=== PATIENT | female | born 2000 | race African-American/Black ===

== ENCOUNTER 2018-10-29 08:39 | Outpatient (CLI) | payer OTHER ==
--- NOTE | 2018-10-29 09:34 | ULT ---
FUS OB Complete STANDARD History: [Anatomy, size/dates] Comparison: None. Findings: Real-time grayscale, color, and spectral analysis of the gravid uterus was performed transa bdominal approach. Normal single viable intrauterine with average ultrasound age 22 week 3 day with estimated date of delivery March 01, 2019. Estimated weight is 1 lb. 3 oz., 78th percentile Heart rate documented at 146 bpm. The placenta is anterior and the presentation is breech. Normal amniotic fluid. No placenta previa. The three-vessel cord overlies the internal os. Anatomy: Head, cerebellum, cisterna magna, lateral ventricles, four-chamber heart, stomach, kidneys, cord insertion, bladder, spine, lips/nose, upper extremities, lower extremities, three-vessel cord we re all visualized and appear normal. Biometry: Biparietal diameter: 5.17 cm, 21 week 5 day Head circumference: 19.8 cm 22 weeks 0 day Abdominal circumference: 18.83 cm 23 week 5 day Femur length: 3.71 cm 21 weeks 6 day Impression: Single viable intrauterine with average ultrasound age 22 weeks 3 days with est imated date of delivery March 01, 2019. The three-vessel cord does overlie the internal os.
== END 2018-10-29 08:40 | disposition home or self-care (01) ==
LOC: BICULT 08:39
PROVIDERS: ATTEND Family Medicine
DX: Z34.02 Encounter for supervision of normal first pregnancy, second trimester (principal); Z3A.22 22 weeks gestation of pregnancy
CPT/HCPCS: 76805

== ENCOUNTER 2018-12-30 00:19 | Observation (INO) | payer OTHER ==
[2018-12-30 00:46] VITALS: BMI 38.4
[2018-12-30] MEDS ORDERED: Ondansetron PF 4 MG/2 ML Vial IVP PRN (02:39)
[2018-12-30] MEDS ORDERED: Promethazine HCl 25 MG/ML VIAL IM PRN (02:39)
[2018-12-30] MEDS ORDERED: Acetaminophen 500 MG TAB PO PRN (02:39)
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
--- NOTE | 2018-12-31 16:05 | DIS ---
DATE OF ADMISSION: 12/30/2018 DATE OF DISCHARGE: 12/30/2018 ADMITTING DIAGNOSES: 1. Intrauterine at 30 weeks. 2. Status post fall. DISCHARGE DIAGNOSES: 1. Intrauterine at 30 weeks. 2. Status post fall. PROCEDURE: None. HOSPITAL COURSE: The patient is a 18-year-old female, who fell on her belly last night around 11 o'clock and presented to Labor and Delivery for evaluation. The patient has been monitored for the last 5 hours without any evidence of contractions, vaginal bleeding, and category one tracing. This morning, on re-evaluation of the patient, the patient has no complaints. PHYSICAL EXAMINATION: VITAL SIGNS: Blood pressure 113/60, heart rate of 79, respiratory rate of 16, and temperature 98.3. GENERAL: She appears to be in no acute distress. She is alert, oriented, cooperative, and pleasant to interact with. ABDOMEN: Soft. Review of the heart tracing shows tocometer without any contractions and heart tracing with a baseline in the 120s with moderate long-term variability, positive 15 x 15 accelerations, no decelerations. The patient is being discharged to home with instructions to follow up with her primary OB Dr. Waddell as scheduled on Monday. Job ID: [id number]
== END 2018-12-30 07:57 | disposition home health service (06) ==
LOC: L&D/OP 00:19 → L&D 02:39
PROVIDERS: ADMIT Family Medicine; ATTEND Family Medicine
DX: Z04.3 Encounter for examination and observation following other accident (principal); Z3A.30 30 weeks gestation of pregnancy; W18.09XA Striking against other object with subsequent fall, initial encounter
CPT/HCPCS: 99285; G0378

== ENCOUNTER 2019-03-04 19:45 | Inpatient (IN) | payer OTHER ==
[~2019-03-04 19:45] MED LIST: Bupivacaine/Epinephrine 0.25% 30 ML VIAL ONE
[2019-03-04] MEDS ORDERED: Lidocaine 1% (PF) 30 ML VIAL SC PRN (21:37)
[2019-03-04] MEDS ORDERED: NS / Oxytocin 40 units/1000ml 1,000 ML IV PRN (21:37)
[2019-03-04] MEDS ORDERED: Promethazine HCl 25 MG/ML VIAL IM PRN (21:37)
[2019-03-04] MEDS ORDERED: Penicillin G Potassium 5 MILL.UNITS in Sodium Chloride 0.9% 100 ML IVPB SCH (21:37)
[2019-03-04] MEDS ORDERED: hydrALAZINE 20 MG/ML VIAL SLOW IVP PRN (21:37)
[2019-03-04] MEDS ORDERED: Misoprostol 200 MCG TAB PR PRN (21:37)
[2019-03-04] MEDS ORDERED: Diphenoxylate HCl/Atropine Tablet PO PRN (21:37)
[2019-03-04] MEDS ORDERED: HYDROcodone/Acetaminophen 5/325 mg Tablet PO PRN (21:37)
[2019-03-04] MEDS ORDERED: Penicillin G 2.5 MILL.units 2.5 MILL.UNITS in Premix Bag 1 BAG IVPB SCH (21:37)
[2019-03-04] MEDS ORDERED: Carboprost 250 MCG/ML AMP IM PRN (21:37)
[2019-03-04] MEDS ORDERED: NS w/ Oxytocin 10 units 500 ML IV SCH (21:37)
[2019-03-04] MEDS ORDERED: Ibuprofen 800 MG TAB PO PRN (21:37)
[2019-03-04] MEDS ORDERED: Methylergonovine 0.2 MG/ML VIAL IM PRN (21:37)
[2019-03-04] MEDS: Lactated Ringer's 1,000 ML IV SCH (22:15)
[2019-03-04 22:31] VITALS: BMI 41.3
[2019-03-04 22:50] LABS: Mean Corpuscular HGB CONC 33.7 g/dL (32.0-36.0); Mean Corpuscular Hemoglobin 28.3 pg (27.0-31.0); Mean Corpuscular Volume 84.1 fL (78.0-98.0); Mean Platelet Volume 9.9 fL (7.4-10.4); Platelet Count 169 thou/uL (130-400); Red Blood Cell (RBC) Count 4.93 mill/uL (4.20-5.40); White Blood Cell (WBC) Count 10.2 thou/uL (4.8-10.8)
[2019-03-04 23:28] LABS: HBSAg Index 0.34 S/CO (0-0.99); Hep B Surf Ag Non-Reactive S/CO (NonReactive); Syphilis Antibody Nonreactive (Nonreactive); Syphilis Antibody Index 0.05 S/CO (<1.00 Non-Reactive)
[2019-03-05] MEDS: Lactated Ringer's 1,000 ML IV SCH ×4 (04:54→21:05)
[2019-03-05] MEDS: Misoprostol 100 MCG TAB PO SCH ×3 (07:17→19:46)
[2019-03-05] MEDS: Butorphanol Tartrate 1 MG/ML VIAL SLOW IVP PRN ×2 (13:53→16:17)
[2019-03-05] MEDS ORDERED: Fentanyl 4 mcg/Bup 0.1% Cadd 100 ML ONE ×2 (17:24→17:34)
[2019-03-05] MEDS: Ondansetron PF 4 MG/2 ML Vial IVP PRN (18:33)
[2019-03-05] MEDS: NS w/ Oxytocin 10 units 500 ML IV SCH (19:47)
[2019-03-06] MEDS: Ondansetron PF 4 MG/2 ML Vial IVP PRN ×2 (00:28→09:08)
[2019-03-06] MEDS ORDERED: Fentanyl 4 mcg/Bup 0.1% Cadd 100 ML ONE ×2 (00:34→06:25)
[2019-03-06] MEDS ORDERED: Azithromycin 500 MG VIAL ONE (07:36)
[2019-03-06] MEDS ORDERED: CEFAZOLIN 2 GM in Premix Bag 1 BAG IVPB SCH ×2 (07:45→08:00)
[2019-03-06] MEDS ORDERED: Bicitra 30 ML UDCUP PO SCH (07:45)
[2019-03-06] MEDS ORDERED: Gentamicin Sulfate 80 MG in Premix Bag 1 BAG IVPB SCH (07:45)
[2019-03-06] MEDS ORDERED: Bicitra 30 ML UDCUP ONE (07:47)
[2019-03-06] MEDS ORDERED: CEFAZOLIN 2 GM in Sodium Chloride 0.9% 100 ML IVPB SCH (08:00)
[2019-03-06] MEDS ORDERED: metroNIDAZOLE 500 MG in Premix Bag 1 BAG IVPB ONE (08:00)
[2019-03-06] MEDS ORDERED: Azithromycin 500 MG in Sodium Chloride 0.9% 250 ML 250 ML IVPB SCH (08:00)
[2019-03-06] MEDS ORDERED: Methylergonovine 0.2 MG/ML VIAL ONE (08:32)
[2019-03-06] MEDS ORDERED: Carboprost 250 MCG/ML AMP ONE ×2 (08:33→10:24)
[2019-03-06] MEDS: Lactated Ringer's 1,000 ML IV SCH ×2 (08:56→17:39)
[2019-03-06] MEDS ORDERED: Fentanyl 100 MCG/2 ML VIAL ONE ×2 (09:48→10:50)
[2019-03-06] MEDS ORDERED: Metoclopramide HCl 10 MG/2 ML VIAL ONE (09:49)
[2019-03-06] MEDS ORDERED: Ondansetron PF 4 MG/2 ML Vial ONE (09:49)
[2019-03-06] MEDS ORDERED: Lidocaine 2% 10 ML INJ ONE (09:49)
[2019-03-06] MEDS ORDERED: Oxytocin 10 UNITS/ML VIAL ONE (09:49)
[2019-03-06] MEDS ORDERED: Lidocaine 2% PF 5 ML VIAL ONE (10:00)
[2019-03-06] MEDS ORDERED: Ketorolac Tromethamine 30 MG/ML VIAL ONE ×2 (10:00→11:12)
[2019-03-06] MEDS ORDERED: Labetalol HCl 100 MG/20 ML VIAL ONE ×2 (10:00→11:06)
[2019-03-06] MEDS ORDERED: Succinylcholine Chloride 20 MG/ML 10 ml SYRINGE FS ONE (10:02)
[2019-03-06] MEDS ORDERED: PROPOFOL 20 ML ONE (10:02)
[2019-03-06] MEDS ORDERED: MORPHINE 5 MG/10 ML PF VIAL ONE ×2 (10:14→11:06)
[2019-03-06] MEDS ORDERED: Promethazine HCl 25 MG SUPP PR PRN (10:34)
[2019-03-06] MEDS ORDERED: Ondansetron PF 4 MG/2 ML Vial IVP PRN ×2 (10:34→14:40)
[2019-03-06] MEDS ORDERED: Naloxone HCl 0.4 mg/ml Vial IV PRN (10:34)
[2019-03-06] MEDS ORDERED: Ondansetron HCl/PF 4 MG/2 ML Vial IVP PRN (10:34)
[2019-03-06] MEDS ORDERED: HYDROmorphone 2 MG/ML VIAL SLOW IVP PRN (10:34)
[2019-03-06] MEDS ORDERED: diphenhydrAMINE 50 MG/ML VIAL IVP PRN (10:34)
[2019-03-06] MEDS ORDERED: Meperidine HCl/PF 25 MG/ML VIAL SLOW IVP PRN (10:34)
[2019-03-06] MEDS ORDERED: L&D-Morphine 4 MG/ML VIAL SLOW IVP PRN (10:34)
[2019-03-06] MEDS ORDERED: Promethazine HCl 25 MG/ML VIAL IM PRN ×2 (10:34→14:40)
[2019-03-06] MEDS ORDERED: Ketorolac Tromethamine 30 MG/ML VIAL IVP PRN (10:34)
[2019-03-06] MEDS ORDERED: Naloxone HCl 0.4 mg/ml Vial IVP PRN ×2 (10:34)
[2019-03-06] MEDS ORDERED: Communication Order-Pharmacy FS PRN (10:45)
[2019-03-06] MEDS ORDERED: Meperidine HCl/PF 25 MG/ML VIAL ONE (12:00)
[2019-03-06] MEDS ORDERED: diphenhydrAMINE 25 MG CAP PO PRN (14:40)
[2019-03-06] MEDS ORDERED: NS / Oxytocin 40 units/1000ml 1,000 ML IV SCH (14:40)
[2019-03-06] MEDS ORDERED: HYDROcodone/Acetaminophen 5/325 mg Tablet PO PRN (14:40)
[2019-03-06] MEDS ORDERED: Simethicone Chewable 80 MG TAB PO PRN (14:40)
[2019-03-06] MEDS ORDERED: hydrALAZINE 20 MG/ML VIAL SLOW IVP PRN (14:40)
[2019-03-06] MEDS ORDERED: Bisacodyl 10 MG SUPP PR PRN (14:40)
[2019-03-06] MEDS ORDERED: Meperidine HCl/PF 25 MG/ML VIAL IM PRN (14:40)
[2019-03-06] MEDS ORDERED: Lanolin Ointment 7 GM TUBE TOP PRN (14:40)
--- NOTE | 2019-03-06 15:19 | OP ---
DATE OF PROCEDURE: 03/06/2019 PREOPERATIVE DIAGNOSES: 1. A 40-week . 2. Failure to descend. 3. Intrapartum fever, suspected chorioamnionitis. POSTOPERATIVE DIAGNOSES: 1. A 40-week . 2. Failure to descend. 3. Intrapartum fever, suspected chorioamnionitis. 4. Persistant OP presentation PROCEDURE PERFORMED: Primary low cervical transverse . SURGEON: Be Waddell MD HARDWARE ASSEMBLER: Frank Corado MD INTRAOPERATIVE CONSULTATION: Dr. Wing. DESCRIPTION OF PROCEDURE: After informed consent was obtained from the patient , and after her epidural was bolused, the patient was taken to the operating room, where she was prepped and draped in the usual sterile fashion. A Pfannenstiel incision was created with a #10 scalpel blade and carried down to the fascia. The fascia was nicked in the midline. The fascial incision was extended transversely with Diallo scissors. The superior fascial segments were grasped with Yousuf and elevated and the underlying rectus muscles were dissected free, first bluntly and then sharply with Diallo scissors. This was repeated with inferior fascial segment. The rectus muscles were divided in the midline with blunt digital dissection. An Pietro O retractor was placed. The uterus was entered in a low-transverse fashion with a clean #10 scalpel blade. The vertex was deeply impacted into the vagina, but was able to be delivered onto the abdomen. The remainder of the infant delivered uneventfully and atraumatically. The placenta was manually extracted. The uterus was exteriorized and freed of clots and debris. The uterus was noted to be somewhat atonic and Methergine x1 and Hemabate x1 were given along with Pitocin infusion, which resolved the uterine atony. The uterus was repaired with a running locking suture of 0 Vicryl in a single full-thickness layer, followed by series of interrupted [id number] sutures along the incision along the hysterotomy for hemostasis. Examination of the uterus and fallopian tubes revealed a tear in the broad ligament and ovarian ligament. The edges were oozing slightly, especially posteriorly. It was at this point that, Dr. Wing was consulted intraoperatively for assistance. After examining the edges and the more inferior part of the broad ligament, thoroughly we decided to place Teodora along the posterior and anterior aspects of the tear in the right broad and ovarian ligaments and after prolonged period of observation, hemostasis was observed. The uterus was then returned to the abdomen. The hysterotomy was examined and required two more interrupted [id number] sutures along the hysterotomy for hemostasis. The left corner was hemostatic. The right corner and broad ligaments were also hemostatic upon inspection. The peritoneum was then repaired with a running suture of 3-0 Vicryl. Fascia was repaired with a running suture of 0 PDS. Three interrupted sutures of 3-0 Vicryl were placed in the subdermal layer to approximate the skin, which was closed with skin crescencio. Sponge and instrument counts were correct x4. She tolerated the procedure well and suffered no acute complications. She was taken Recovery in stable condition and infant to the nursery in stable condition. FINDINGS: Viable female infant, Apgars 8 and 9 at 1 and 5 minutes respectively. SPECIMENS: 1. Placenta to pathology. 2. Cord ABG. COMPLICATIONS: Broad ligament tear. Job ID: [id number] MTDD
[2019-03-06] MEDS ORDERED: Adacel (T-DAP) 0.5 ML SYRINGE IM ONE (16:00)
[2019-03-06] MEDS: CEFAZOLIN 2 GM, IV Admixture Fee-Chemo 1 UNITS in Sodium Chloride 0.9% 100 ML IVPB SCH (17:38)
--- NOTE | 2019-03-06 18:41 | CON ---
DATE OF CONSULTATION: 03/06/2019 I was called to the operating room for a consultation by Dr. Waddell for intraoperative bleeding. The patient was taken to the operating room for low-transverse due to arrest of descent after pushing. Upon delivery, there was an extension through the right broad ligament. This was closed by Dr. Waddell prior to my arrival with only a large area of oozing remaining. There appeared to be no acute bleeding, but due to the continued oozing, Teodora was recommended to be placed over the bed on the posterior side of the uterus and broad ligament. Good hemostasis was noted at that time and the remainder of the operation was performed by Dr. Waddell. Job ID: [id number] MTDD
[2019-03-06] MEDS: Ferrous Sulfate 325 MG TAB PO SCH (20:00)
[2019-03-06] MEDS: Docusate Calcium (SURFAK) 240 MG CAP PO SCH (20:00)
[2019-03-06] MEDS: metroNIDAZOLE 500 MG in Premix Bag 1 BAG IVPB SCH (20:11)
[2019-03-06] MEDS: HYDROcodone/Acetaminophen 5/325 mg Tablet PO PRN (23:36)
[2019-03-07] MEDS: CEFAZOLIN 2 GM, IV Admixture Fee-Chemo 1 UNITS in Sodium Chloride 0.9% 100 ML IVPB SCH ×3 (01:56→17:45)
[2019-03-07] MEDS: metroNIDAZOLE 500 MG in Premix Bag 1 BAG IVPB SCH ×3 (04:03→20:11)
[2019-03-07 04:30] LABS: Hemoglobin 10.8 g/dL (12.0-16.0); Mean Corpuscular HGB CONC 33.5 g/dL (32.0-36.0); Mean Corpuscular Volume 86.5 fL (78.0-98.0); Mean Platelet Volume 9.2 fL (7.4-10.4); Platelet Count 127 thou/uL (130-400); Red Blood Cell (RBC) Count 3.74 mill/uL (4.20-5.40); White Blood Cell (WBC) Count 12.9 thou/uL (4.8-10.8)
[2019-03-07] MEDS: Ibuprofen 800 MG TAB PO SCH ×4 (06:21→22:14)
[2019-03-07] MEDS ORDERED: Sodium Chloride 0.9% 10 ML ONE ×3 (07:44→20:24)
[2019-03-07] MEDS: Prenatal Vitamin 1 TAB PO SCH (09:14)
[2019-03-07] MEDS: Ferrous Sulfate 325 MG TAB PO SCH ×2 (09:15→21:59)
[2019-03-07] MEDS: Docusate Calcium (SURFAK) 240 MG CAP PO SCH ×2 (09:15→21:56)
[2019-03-07] MEDS: Lactated Ringer's 1,000 ML IV SCH (09:17)
[2019-03-08] MEDS: HYDROcodone/Acetaminophen 5/325 mg Tablet PO PRN (00:32)
[2019-03-08] MEDS: CEFAZOLIN 2 GM, IV Admixture Fee-Chemo 1 UNITS in Sodium Chloride 0.9% 100 ML IVPB SCH ×3 (02:24→17:37)
[2019-03-08] MEDS: metroNIDAZOLE 500 MG in Premix Bag 1 BAG IVPB SCH ×3 (04:04→19:47)
[2019-03-08] MEDS: Ibuprofen 800 MG TAB PO SCH ×3 (05:58→21:13)
[2019-03-08] MEDS: Prenatal Vitamin 1 TAB PO SCH (09:26)
[2019-03-08] MEDS: Docusate Calcium (SURFAK) 240 MG CAP PO SCH ×2 (09:26→21:13)
[2019-03-08] MEDS: Ferrous Sulfate 325 MG TAB PO SCH ×2 (09:27→21:14)
[2019-03-08] MEDS ORDERED: Amlodipine 5 MG TAB ONE (10:28)
[2019-03-08] MEDS ORDERED: Sodium Chloride 0.9% 10 ML ONE ×2 (10:29→19:30)
[2019-03-08 19:08] LABS: Bacteria/HPF 2+ HPF (None Seen); Bilirubin Negative (Negative); Blood, Urine 3+ (Negative); Clarity Turbid (Clear); Glucose, Urine (Dipstick) Normal (Negative); Leukocyte 250 Leu/uL (Negative); Nitrite Negative (Negative); Protein, Urine (Dipstick) 50 mg/dL (Neg-Trace); RBC/HPF Greater than 50 HPF (0-3); Urobilinogen 6 mg/dL (Less than 2); WBC/HPF Greater than 50 HPF (0-3)
[2019-03-08 19:09] LABS: Urine Culture Reflex No No
[2019-03-08] MEDS: NS w/ Oxytocin 10 units 500 ML IV SCH (19:22)
[2019-03-09] MEDS: CEFAZOLIN 2 GM, IV Admixture Fee-Chemo 1 UNITS in Sodium Chloride 0.9% 100 ML IVPB SCH ×2 (02:27→10:42)
[2019-03-09] MEDS: metroNIDAZOLE 500 MG in Premix Bag 1 BAG IVPB SCH ×2 (03:46→11:30)
[2019-03-09] MEDS: Ibuprofen 800 MG TAB PO SCH ×2 (05:55→14:54)
[2019-03-09] MEDS: Ferrous Sulfate 325 MG TAB PO SCH (09:25)
[2019-03-09] MEDS: Docusate Calcium (SURFAK) 240 MG CAP PO SCH (09:26)
[2019-03-09] MEDS: Prenatal Vitamin 1 TAB PO SCH (09:26)
[2019-03-09 09:51] VITALS: BP 121/71; TEMP 98.1
[2019-03-09] MEDS ORDERED: Sodium Chloride 0.9% 10 ML ONE (10:40)
[2019-03-09] MEDS ORDERED: CEFAZOLIN 2 GM in Premix Bag 1 BAG IVPB SCH (18:00)
== END 2019-03-09 16:00 | disposition home or self-care (01) | DRG 786 ==
LOC: L&D 21:24 → 3SW 03-06 14:13
PROVIDERS: ADMIT Family Medicine; ATTEND Family Medicine
PROC: 10D00Z1 Extraction of Products of Conception, Low, Open Approach (ICD-10-PCS; principal; 2019-03-06)
PROC: 10907ZC Drainage of Amniotic Fluid, Therapeutic from Products of Conception, Via Natural or Artificial Opening (ICD-10-PCS; 2019-03-06)
PROC: 3E0P7VZ Introduction of Hormone into Female Reproductive, Via Natural or Artificial Opening (ICD-10-PCS; 2019-03-06)
DX: O48.0 Post-term pregnancy (principal); O41.1230 Chorioamnionitis, third trimester, not applicable or unspecified; Z3A.40 40 weeks gestation of pregnancy; Z37.0 Single live birth
CPT/HCPCS: 36415; 51702; 81001; 82805; 85027; 86780; 86850; 86900; 86901; 87340; 88307; J0456; J0595; J0690; J1580; J1885; J2001; J2175; J2210; J2274; J2405; J2590; J2704; J2765; J3010; J3490